=== PATIENT | male | born 1960 | race Asian ===

== ENCOUNTER 2025-09-10 15:18 | Emergency (ER) | payer MEDICARE, SELFPAY ==
[2025-09-10] VITALS (10 sets, daily range): BP systolic 113–201; BP diastolic 73–114; PULSE 78–106; RESP 16–22; TEMP 36.6–37.1; O2SAT 98–100
--- NOTE | 2025-09-10 15:47 | XR_ITS ---
EXAMINATION: CT abdomen pelvis without intravenous contrast 2D sagittal coronal reconstructions 3D reconstructions Date and time: September 10, 2025, 1607 hours, comparison fibroid 10/2008 INDICATIONS: Onset hematuria today. CTDI: 6.64 DLP: 411 TECHNIQUE AND FINDINGS: Axial 3.0 mm slice thickness images through the abdomen pelvis without intravenous contrast 2D sagittal and coronal reconstructions. 3D reconstructions. Low-dose protocols, adjustment MA KV according to patient size Heavy calcification left anterior descending coronary artery No visualized liver or splenic lesion Absent gallbladder No pancreatic mass Normal adrenal glands. 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 No abdominal or pelvic lymphadenopathy Abdominal aorta is calcified not enlarged Normal appendix No bowel obstruction Blood in the urinary bladder Transverse prostate dimension 5.2 cm Prominent osteopenia IMPRESSION: Large solid tumor mass anterior left kidney, 7.3 x 6.4 x 6.4 cm, recommend MRI abdomen follow-up pre and post contrast for staging Significant blood in the urinary bladder
--- NOTE | 2025-09-10 15:48 | PD.EDRME ---
Rapid Medical Screening Exam RME Arrival date/time: 09/10/25 15:18 64-year-old male presents to the Emergency Department today for complaints of hematuria Chief Complaint: Urogenital-Male Vital signs: Vital Signs Temperature 97.9 F 09/10/25 15:39 Pulse Rate 93 09/10/25 15:39 Respiratory Rate 18 09/10/25 15:39 Blood Pressure 113/73 09/10/25 15:39 Pulse Oximetry (%) 98 09/10/25 15:39 Oxygen Delivery Method Room Air 09/10/25 15:39
[2025-09-10 16:34] LABS: Basophils # (Auto) 0.1 Thou/mm3 (0.0-0.2); Basophils % (Auto) 1 % (0-2.5); Eosinophils # (Auto) 0.0 Thou/mm3 (0.0-0.5); Eosinophils % (Auto) 0 % (0-10); Hematocrit 37.9 % (41.0-53.0); Hemoglobin 11.8 g/dL (13.5-16.0); Immature Granulocytes Auto 0.09 Thou/mm3 (0.00-0.00); Lymphocytes # (Auto) 1.7 Thou/mm3 (1.0-4.8); Lymphocytes % (Auto) 20 % (10-50); Mean Corpuscular HGB Conc 31.1 g/dl (31.0-37.0); Mean Corpuscular Hemoglobin 20.4 pg (25.0-35.0); Mean Corpuscular Volume 66 fL (80-100); Monocytes # (Auto) 0.7 Thou/mm3 (0.0-0.8); Monocytes % (Auto) 8 % (0-12); Neutrophils # (Auto) 6.1 Thou/mm3 (1.8-7.7); Neutrophils % (Auto) 70 % (37-80); Nucleated Red Blood Cell # 0.00 Thou/mm3 (0.00-0.00); Nucleated Red Blood Cell % 0 /100 WBC (0); Platelet Count 302 Thou/mm3 (140-440); RDW Standard Deviation 35.6 fL (35.1-43.9); Red Blood Count 5.78 Miln/mm3 (4.50-5.90); White Blood Count 8.7 Thou/mm3 (3.8-10.6)
[2025-09-10 16:41] LABS: Collection Type, Urine Clean Catch; Squamous Epithelial Cell,Urine 0 /hpf (0-5); WBC,Urine 0 /hpf (0-5)
[2025-09-10 16:56] LABS: INR 1.0 (0.9-1.3); Partial Thromboplastin Time 27.1 Seconds (22.0-36.0); Prothrombin Time 10.2 Seconds (9.0-12.2)
[2025-09-10 16:59] LABS: Alanine Aminotransferase 15 U/L (10-49); Albumin, Serum 4.8 gm/dL (3.4-4.8); Albumin/Globulin Ratio 1.8 (1.2-2.2); Alkaline Phosphatase 67 U/L (46-116); Anion Gap 13 (7-16); Aspartate Amino Transferase < 8 U/L (0-34); BUN/Creatinine Ratio 8 Ratio (12-20); Bilirubin,Total 0.4 mg/dL (0.3-1.2); Blood Urea Nitrogen 16 mg/dL (9-23); Calcium 9.2 mg/dL (8.3-10.6); Calcium (Corrected) 9.2 mg/dL (8.5-10.1); Carbon Dioxide 21.3 mMol/L (20.0-31.0); Chloride 100 mMol/L (98-107); Creatinine (Component) 1.9 mg/dL (0.6-1.3); Globulin 2.7 gm/dL (2.3-3.5); Osmolality,Calculated 287 (275-295); Potassium 3.8 mMol/L (3.4-5.1); Sodium 134 mMol/L (136-145); Total Protein 7.5 gm/dL (5.7-8.2); eGFR 38 See Note
[2025-09-10 17:14] LABS: Glucose 421 mg/dL (74-106)
[2025-09-10 17:20] LABS: Bilirubin,Urine Negative (Negative); Blood,Urine 3+ (Negative); Color,Urine Red (Lt Yel-Yel); Culture Indicated,Urine Not Indicated; Glucose, Urine 4+ (Negative); Ketones,Urine Negative (Negative); Leukocyte Esterase,Urine Positive (Negative); Nitrite,Urine Negative (Negative); PH,Urine 6.5 (5.0-7.0); Protein,Urine 2+ (Neg - Trace); RBC,Urine 9468 /hpf (0-3); Specific Gravity,Urine 1.027 (1.001-1.035); Urobilinogen,Urine Negative mg/dL (0.0-1.0)
[2025-09-10 17:22] LABS: Clarity,Urine Bloody (Clear/Hazy)
--- NOTE | 2025-09-10 19:01 | EDNOTE_ITS ---
ED Male Genitalurinary RME/HPI General Chief complaint: Urogenital-Male Stated complaint: PEEING BLOOD Time Seen by Provider: 09/10/25 18:45 Arrival date/time: 09/10/25 15:18 RME / HPI RME / HPI Narrative: 09/10/25 15:18 64-year-old male presents to the Emergency Department today for complaints of hematuria Dr. Umana?s Main ED Evaluation: 64yo male with history of DM, HTN presents to the ED for a chief complaint of hematuria x yesterday. Patient noticed he was having hematuria yesterday and was passing clots. states the patient has been dribbling. Patient reports associated dysuria and mid lower back pain. No fever, chills, or any other associated symptoms. NKA. Related Data Home Medications ?Medication ?Instructions ?Recorded ?Confirmed aspirin 81 mg capsule 81 mg PO QDAY 09/10/2509/10 cefuroxime axetil 500 mg tablet 500 mg PO Q12H 09/10/25 empagliflozin 25 mg tablet 25 mg PO QDAY 09/10/2508/27 (Jardiance) linagliptin 5 mg tablet (Tradjenta) 5 mg PO QDAY 09/1009/10/25 lisinopril 40 mg tablet 40 mg PO QDAY 09/10/2509/10 Allergies Allergy/AdvReac Type Severity Reaction Status Date / Time No Known Allergies Allergy Unknown Uncoded 09/10/25 15:20 Review of Systems Review of Systems Systems Reviewed: All systems reviewed, normal except as documented Past Medical History Past Medical History NEUROLOGIC: Negative Neurological Disorders or Seizures CARDIAC: Positive Hypertension; Negative Congestive Heart Failure RESPIRATORY: Negative Respiratory Disorders or Chronic Obstructive Pulmonary Di sease (COPD) GASTROINTESTINAL: Positive Gastrointestinal Disorders and Gall Bladder Disease GENITOURINARY: Negative Genitourinary Disorders or Renal Disease MUSCULOSKELETAL: Positive Musculoskeletal Disorders and Arthritis; Negative Fractures ENDOCRINE: Positive Endocrine Disorders and Diabetes Mellitus Type 2; Negative Diabetes Mellitus Type 1 HEMATOLOGIC: Negative Blood Disorders OTHER HISTORY: Positive Chicken Pox; Negative Autoimmune Disease, Down Syndrome, Developmental Delay, Blood Transfusions, Anesthesia Reactions, Measles or Cancer Social History SMOKING STATUS: Never smoker ED Exam Narrative Physical exam: Generally patient is alert and in no obvious distress, heart regular rate and rhythm, lungs clear to auscultation equal bilaterally, abdomen soft bowel sounds present nondistended suprapubic abdominal tenderness without rebound, musculoskeletal exam showed no costovertebral angle tenderness with mild tenderness over the sacrum. Neurologic exam shows a Sheila Coma Scale of 15. Skin is warm pale and dry. Extremities show no edema. Course Quality Measures none Orders Category Date Time Status Continuous Bladder Irrigation QSHIFT Care 09/10/25 19:10 Active Esposito [Urinary Catheter] QS Care 09/10/25 19:47 Active Insert IV NOW Care 09/10/25 20:[address] abdomen pelvis wo con Stat Exams 09/10/25 15:47 Completed CBC Stat Lab 09/10/25 16:21 Completed CBC Stat Lab 09/10/25 21:05 Completed Comprehensive Metabolic Panel Stat Lab 09/10/25 16:21 Completed Partial Thromboplastin Time Stat Lab 09/10/25 16:21 Completed Path Review Blood Smear Stat Lab 09/10/25 16:21 Completed Prothrombin Time with INR Stat Lab 09/10/25 16:21 Completed UA, C/S IF [Urinalysis, C/S if Indicated] Stat Lab 09/10/25 16:22 Completed Lisinopril [Prinivil] Med 09/10/25 21:38 Discontinued 40 mg PO X1 ONE Morphine* Inj Med 09/10/25 20:03 Discontinued 4 mg IVP X1 ONE Vital Signs Vital signs: Vital Signs Temperature 97.9 F 09/10/25 15:39 Pulse Rate 93 09/10/25 15:39 Respiratory Rate 18 09/10/25 15:39 Blood Pressure 113/73 09/10/25 15:39 Pulse Oximetry (%) 98 09/10/25 15:39 Oxygen Delivery Method Room Air 09/10/25 15:39 Urogenital - Male MDM Narrative MDM Narrative:: Scribe Attestation: 09/10/25 - Viktoria Carrera am scribing for and in the presence of Dr. Umana. I interpreted all labs. Renal function is normal. There is no leukocytosis. Hemoglobin is 11. There is no thrombocytopenia. There is no coagulopathy. There is no evidence of urine infection. There is gross hematuria. CT scan done of the abdomen pelvis with IV contrast shows a left-sided renal mass with blood clot in the bladder. I have ordered continuous bladder irrigation. I will attempt to transfer this patient to a facility that has a urologist under the belief that this patient needs a biopsy of this left renal mass and for further treatment of his gross hematuria. This case was discussed with the [facility] center who discussed this case with their urologist on-call, Dr. Graham. The patient has a three-way irrigation catheter in and clots are being irrigated. Patient has been accepted and will be transferred in stable condition. Original hemoglobin was 11.8 and this was repeated and it is at 11.7. Patient data External records reviewed:: [facility] previous records (Per chart review, patient has no previous ED visits or admissions to this facility.) Clinical information provided by:: patient Social determinants that could affect healthcare access:: none Patient has the following chronic illnesses:: DM, HTN How is presenting disease/condition affected by chronic disease/condition?: uneffected by Evaluation data The following diagnostics were reviewed and interpreted by me:: lab results and radiology exam(s) Lab and/or radiology exams considered but not ordered:: none Interpretation Summary: [facility] Report Signed Patient: MICHAEL MONTES. Record#: [id number] Birthdate: 1960 Accoun#: [id number] Age/Sex: 64 / M Location: [facility] Attending Dr: Ordering Physician: Kamille SCHULTZ)Trey NP Date of Service: 09/10/25 Procedure(s): CT abdomen pelvis wo con Accession Number(s): [id number] cc: Kamille SCHULTZ)Trey NP; Chan Sung MD; Ceasar Wang MD~ EXAMINATION: CT abdomen pelvis without intravenous contrast 2D sagittal coronal reconstructions 3D reconstructions Date and time: September 10, 2025, 1607 hours, comparison fibroid 10/2008 INDICATIONS: Onset hematuria today. CTDI: 6.64 DLP: 411 TECHNIQUE AND FINDINGS: Axial 3.0 mm slice thickness images through the abdomen pelvis without intravenous contrast 2D sagittal and coronal reconstructions. 3D reconstructions. Low-dose protocols, adjustment MA KV according to patient size Heavy calcification left anterior descending coronary artery No visualized liver or splenic lesion Absent gallbladder No pancreatic mass Normal adrenal glands. 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 No abdominal or pelvic lymphadenopathy Abdominal aorta is calcified not enlarged Normal appendix No bowel obstruction Blood in the urinary bladder Transverse prostate dimension 5.2 cm Prominent osteopenia IMPRESSION: Large solid tumor mass anterior left kidney, 7.3 x 6.4 x 6.4 cm, recommend MRI abdomen follow-up pre and post contrast for staging Significant blood in the urinary bladder Dictated By: Ceasar Wang MD Signed By: <Electronically signed by Ceasar Wang MD in OV> 09/10/25 1643 Medications / Prescriptions Medications or Prescriptions considered but not ordered:: none Medication administrations:: Medication Administration History Discontinued Medications Lisinopril (Lisinopril 20 Mg Tablet) 40 mg PO X1 ONE Stop: 09/10/25 21:39 Last Admin: 09/10/25 21:47 Dose: 40 mg Documented By: AC Morphine Sulfate (Morphine Sulf Inj 4 Mg/Ml Vial) 4 mg IVP X1 ONE Stop: 09/10/25 20:04 Last Admin: 09/10/25 20:13 Dose: 4 mg Documented By: AC see above Consultations Consultation(s) initiated? (list below): Yes Consultation #1 (Physician, Specialty, Details): Discussed case with [facility]'s transfer center. Discussed patients ED course, exam findings, labs, and radiology results. Awaiting callback. Time: 20:56 Consultation #2 (Physician, Specialty, Details): Dr. Graham, urologist from [facility], accepts the patient for transfer. Time: 21:27 Diagnosis Urogenital Male Differential Diagnosis: other (See MDM.) Most likely diagnosis given after review of the tests above:: see clinical impression below Admission Indicated Admission indicated?: not indicated Explain why admission is indicated or not indicated:: Patient requires urological services that we do not have at our facility. Admission Request Was there a request for admission?: No Disposition Plan Disposition Plan: Transfer (to [facility]) Critical Care Time Critical Care Time Critical Care Time: Yes Total Critical Care Time (min.): 35 Attestation: Excluding other billable procedures Discharge Plan Plan Patient Disposition: [facility] Acute Care Fac Facility Pt Being Transferred to: [facility] Service Needed for Transfer: Urology Discharge Disposition comment: Accepted by Dr. Graham Prescriptions/Referrals Prescriptions/Med Rec: No Action lisinopril 40 mg tablet 40 mg PO QDAY Patient Comments: TAKE 1 TABLET BY MOUTH EVERY DAY FOR 90 DAYS cefuroxime axetil 500 mg tablet 500 mg PO Q12H Tradjenta 5 mg tablet 5 mg PO QDAY Jardiance 25 mg tablet 25 mg PO QDAY aspirin 81 mg capsule 81 mg PO QDAY Referrals: Chan Sung MD [Primary Care Provider, Family Practice] - In 1 week Problem List Clinical Impression: Gross hematuria, Left renal mass Patient/Caregiver Discharge Instructions Print Language: Armenian Stand Alone Forms: Stephanie Award Info., Patient Portal Info Letter
[2025-09-10 19:57] LABS: Path Review Blood Smear Sent to Pathologist
[2025-09-10] MEDS: MORPHINE SULF INJ 4 MG/ML VIAL IVP (20:13)
--- NOTE | 2025-09-10 20:56 | PC.NURSE ---
2050 [facility] CONTACTED PKT SENT AT THIS TIME ALSO.
[2025-09-10 21:20] LABS: Basophils # (Auto) 0.1 Thou/mm3 (0.0-0.2); Basophils % (Auto) 1 % (0-2.5); Eosinophils # (Auto) 0.0 Thou/mm3 (0.0-0.5); Eosinophils % (Auto) 0 % (0-10); Hematocrit 38.2 % (41.0-53.0); Hemoglobin 11.7 g/dL (13.5-16.0); Immature Granulocytes Auto 0.08 Thou/mm3 (0.00-0.00); Lymphocytes # (Auto) 2.9 Thou/mm3 (1.0-4.8); Lymphocytes % (Auto) 26 % (10-50); Mean Corpuscular HGB Conc 30.6 g/dl (31.0-37.0); Mean Corpuscular Hemoglobin 19.8 pg (25.0-35.0); Mean Corpuscular Volume 65 fL (80-100); Monocytes # (Auto) 0.8 Thou/mm3 (0.0-0.8); Monocytes % (Auto) 7 % (0-12); Neutrophils # (Auto) 7.3 Thou/mm3 (1.8-7.7); Neutrophils % (Auto) 65 % (37-80); Nucleated Red Blood Cell # 0.00 Thou/mm3 (0.00-0.00); Nucleated Red Blood Cell % 0 /100 WBC (0); Platelet Count 311 Thou/mm3 (140-440); RDW Standard Deviation 34.8 fL (35.1-43.9); Red Blood Count 5.90 Miln/mm3 (4.50-5.90); White Blood Count 11.2 Thou/mm3 (3.8-10.6)
--- NOTE | 2025-09-10 22:03 | PC.NURSE ---
[address] SOLIS WITH [facility]. REPORT TO [phone].
[2025-09-10] MEDS: MORPHINE SULF INJ 4 MG/ML VIAL IM (22:40)
[2025-09-10] MEDS: ONDANSETRON INJ 2 MG/ML INJ 2 ML 4 MG IVP (22:40)
--- NOTE | 2025-09-10 22:45 | PC.NURSE ---
REPORT GIVEN TO JOE AT [facility]
== END 2025-09-10 22:47 | disposition short-term general hospital (02) ==
PROVIDERS: Nurse Practitioner Primary Care; Emergency Provider Emergency Medicine; PCP Family Medicine
DX: R31.0 Gross hematuria (principal); E11.9 Type 2 diabetes mellitus without complications; I10 Essential (primary) hypertension; N28.89 Other specified disorders of kidney and ureter; Z79.82 Long term (current) use of aspirin
CPT/HCPCS: 36415; 74176; 80053; 81001; 85025; 85610; 85730; 87502; 96372; 96374; 96375; 99283; J2270; J2405; A9270